=== PATIENT | female | born 1940 | race Caucasian/White ===

== ENCOUNTER → 2017-07-15 | Outpatient (CLI) | payer MEDICARE ==
[~2017-07-15] MED LIST: ACET650S21 PO; AMLO5TAB2 PO; ASCO10004 PO; ASPI-496 PO; CHOL5000 PO; DEXL60CA2 PO; DIPH50CA62 PO; FAMO-79 PO; IBUP200C8 PO; LEVO50TA PO; MULT-750 PO; NAPR220C2 PO; OMEG1CAP34 PO; SIMV10TA3 PO; TRAM50TA2 PO; VIT1TABL32 PO; [UNRECOGNIZED DRUG - OTHER] PO
[2017-07-15 10:10] LABS: MICROSCOPIC NOT IND
[2017-07-15 10:13] LABS: CULTURE INDICATED? NO
[2017-07-15 10:15] LABS: BASOPHILS # (AUTO) 0.05 x10^3/uL (0-0.1); BASOPHILS % (AUTO) 1 % (0-1); EOSINOPHILS # (AUTO) 0.11 x10^3/uL (0-0.4); EOSINOPHILS % (AUTO) 1 % (1-7); LYMPHOCYTES # (AUTO) 1.48 x10^3/uL (1-3.4); LYMPHOCYTES % (AUTO) 18 % (22-44); MD NO; MEAN CORPUSCULAR HEMOGLOBIN 33.8 pg (27.0-34.8); MEAN CORPUSCULAR HGB CONC 33.5 g/dL (32.4-35.8); MEAN CORPUSCULAR VOLUME 100.7 fL (80-100); MEAN PLATELET VOLUME 8.1 fL (7.4-10.4); MONOCYTES # (AUTO) 0.67 x10^3/uL (0.2-0.8); MONOCYTES % (AUTO) 8 % (2-9); NEUTROPHILS # (AUTO) 6.15 x10^3/uL (1.8-6.8); NEUTROPHILS % (AUTO) 73 % (42-75); PLATELET COUNT 244 x10^3/uL (130-400); RED CELL DISTRIBUTION WIDTH 14.4 % (9.6-15.2)
[2017-07-15 10:16] LABS: ANION GAP 7 mmol/L (5-15); CALCIUM 9.2 mg/dL (8.5-10.1); CHLORIDE 109 mmol/L (98-107); CREATININE 0.58 mg/dL (0.55-1.02)
== END ==
LOC: STAR 08:45
PROVIDERS: ATTEND Orthopaedic Surgery
DX: Z01.818 Encounter for other preprocedural examination (principal); M17.11 Unilateral primary osteoarthritis, right knee; K21.9 Gastro-esophageal reflux disease without esophagitis; M19.90 Unspecified osteoarthritis, unspecified site
CPT/HCPCS: 36415; 80048; 81003; 85025; 87081; 87147; 93005

== ENCOUNTER 2017-07-21 08:51 | Inpatient (IN) | payer MEDICARE ==
[~2017-07-21] VITALS: Ht 160 cm; Wt 68.8 kg
[2017-08-05] MEDS ORDERED: LACTATED RINGERS 1,000 ML IV SCH (06:52)
[2017-08-05] MEDS ORDERED: GABA300C10 PO (06:56)
[2017-08-05] MEDS ORDERED: LIDOCAINE 1%, 2ML SQ PRN (07:00)
[2017-08-05] MEDS ORDERED: MUPIROCIN OINT 2%, 22GM TP ONE (07:03)
[2017-08-05] MEDS ORDERED: ACETAMINOPHEN 500 MG TABLET ONE (08:02)
[2017-08-05] MEDS ORDERED: MIDAZOLAM 1 MG/ML, 2ML ONE (08:10)
[2017-08-05] MEDS ORDERED: KETAMINE 10 MG/ML, 20ML ONE (08:10)
[2017-08-05] MEDS ORDERED: FENTANYL PF 250 MCG/5ML ONE (08:11)
[2017-08-05] MEDS ORDERED: APREPITANT 40 MG CAPSULE PO ONE (08:30)
[2017-08-05] MEDS ORDERED: ACETAMINOPHEN 500 MG TABLET PO ONE (08:30)
[2017-08-05] MEDS ORDERED: CEFAZOLIN 1,000 MG ONE (09:23)
[2017-08-05] MEDS ORDERED: PROPOFOL 10 MG/ML, 20ML ONE (09:23)
[2017-08-05] MEDS ORDERED: DEXAMETHASONE 4 MG/ML, 1ML ONE (09:23)
[2017-08-05] MEDS ORDERED: ROCURONIUM 10 MG/ML,10ML ONE (09:23)
[2017-08-05] MEDS ORDERED: DIPHENHYDRAMINE 50 MG/ML, 1ML ONE (09:23)
[2017-08-05] MEDS ORDERED: PROPOFOL 10 MG/ML, 50ML ONE (09:23)
[2017-08-05] MEDS ORDERED: ONDANSETRON 2MG/ML, 2ML ONE (09:23)
[2017-08-05] MEDS ORDERED: OXYcodone 5 MG/5 ML ORAL.SOL UDC PO PRN (10:30)
[2017-08-05] MEDS ORDERED: PROMETHAZINE 25 MG/ML, 1ML IV PRN (10:30)
[2017-08-05] MEDS ORDERED: FENTANYL PF 100 MCG/2ML IV PRN (10:30)
[2017-08-05] MEDS ORDERED: ONDANSETRON 2MG/ML, 2ML IVPush PRN (10:30)
[2017-08-05] MEDS ORDERED: HYDROmorphone 1 MG/ML, 1ML IV PRN (10:30)
[2017-08-05] MEDS ORDERED: MAGNESIUM HYDROXIDE 8%, 30ML UDC PO PRN (11:00)
[2017-08-05] MEDS ORDERED: ONDANSETRON 2MG/ML, 2ML IV PRN (11:00)
[2017-08-05] MEDS ORDERED: ALUMINUM/MAG/SIMETHICONE 30 ML UDC PO PRN (11:00)
[2017-08-05] MEDS ORDERED: ZOLPIDEM 5MG TABLET PO PRN (11:00)
[2017-08-05] MEDS ORDERED: PROMETHAZINE 12.5 MG SUPP PR PRN (11:00)
[2017-08-05] MEDS ORDERED: BISACODYL 10 MG SUPP PR PRN (11:00)
[2017-08-05] MEDS ORDERED: ONDANSETRON 4 MG TABLET PO PRN (11:00)
[2017-08-05] MEDS ORDERED: DIPHENHYDRAMINE 50 MG CAPSULE PO PRN (11:00)
[2017-08-05] MEDS ORDERED: DIAZEPAM 5 MG TABLET PO PRN (11:00)
[2017-08-05] MEDS ORDERED: SENNA/DOCUSATE TABLET PO PRN (11:00)
[2017-08-05] MEDS ORDERED: PROMETHAZINE 25 MG/ML, 1ML IM PRN (11:00)
[2017-08-05] MEDS ORDERED: TRANEXAMIC ACID 1,000 MG in SODIUM CHLORIDE 0.9% 100 ML IVPB ONE (11:30)
[2017-08-05] MEDS ORDERED: FENTANYL PF 100 MCG/2ML ONE (11:44)
[2017-08-05] MEDS ORDERED: OXYcodone 5 MG/5 ML ORAL.SOL UDC ONE (11:45)
[2017-08-05 12:15] VITALS: BP 126/82
[2017-08-05] MEDS: D5%-0.45% NACL 1,000 ML IV SCH ×2 (12:59→19:30)
[2017-08-05] MEDS: ACETAMINOPHEN 650 MG/20.3 ML UDC PO SCH ×2 (14:31→20:39)
[2017-08-05] MEDS: CEFAZOLIN PMX 1GM/50ML 50 ML IVPB SCH ×2 (14:31→23:12)
[2017-08-05 14:47] VITALS: BP 117/73
[2017-08-05] MEDS: MUPIROCIN OINT 2%, 22GM TP SCH ×2 (16:05→20:42)
[2017-08-05] MEDS: ASPIRIN 81 MG TABLET EC PO SCH (18:03)
[2017-08-05 19:00] VITALS: BP 118/68
[2017-08-05] MEDS: DOCUSATE 100 MG CAPSULE PO SCH (20:39)
[2017-08-05] MEDS ORDERED: FAMOTIDINE 20 MG TABLET PO SCH ×2 (21:00)
[2017-08-05] MEDS ORDERED: SIMVASTATIN 10 MG TABLET PO SCH (21:00)
[2017-08-06 01:44] VITALS: BP 126/78
[2017-08-06] MEDS: ACETAMINOPHEN 650 MG/20.3 ML UDC PO SCH ×3 (02:19→13:49)
[2017-08-06] MEDS: D5%-0.45% NACL 1,000 ML IV SCH ×2 (03:22→11:27)
[2017-08-06] MEDS: ASPIRIN 81 MG TABLET EC PO SCH (05:35)
[2017-08-06] MEDS ORDERED: LEVOTHYROXINE 50 MCG TABLET PO SCH (06:00)
[2017-08-06] MEDS ORDERED: DEXAMETHASONE 4 MG/ML, 1ML IVPush SCH (06:00)
[2017-08-06 07:05] VITALS: BP 146/86
[2017-08-06] MEDS ORDERED: PANTOPROZOLE 40MG TABLET PO SCH (07:30)
[2017-08-06] MEDS: DOCUSATE 100 MG CAPSULE PO SCH (08:16)
[2017-08-06] MEDS: MUPIROCIN OINT 2%, 22GM TP SCH ×2 (08:17→16:00)
[2017-08-06] MEDS ORDERED: AMLODIPINE 5 MG TABLET PO SCH (09:00)
[2017-08-06] MEDS ORDERED: MULTIVITAMINS/MINERALS TABLET PO SCH (09:00)
[2017-08-06] MEDS ORDERED: KETOROLAC 30 MG/1 ML IV SCH (11:00)
[2017-08-06 13:16] VITALS: BP 125/72
[2017-08-06] MEDS ORDERED: MIDAZOLAM 1 MG/ML, 2ML ONE (14:24)
[2017-08-06 16:09] VITALS: BP 151/86
== END 2017-08-06 16:45 | disposition home or self-care (01) | DRG 470 ==
LOC: ORIP 08-05 06:20 → 4NOR 08-05 12:25
PROVIDERS: ADMIT Orthopaedic Surgery; ATTEND Orthopaedic Surgery
PROC: 0SRC0J9 Replacement of Right Knee Joint with Synthetic Substitute, Cemented, Open Approach (ICD-10-PCS; principal; 2017-08-05 09:15)
DX: M17.11 Unilateral primary osteoarthritis, right knee (principal); E03.9 Hypothyroidism, unspecified; E78.5 Hyperlipidemia, unspecified; I10 Essential (primary) hypertension; K21.9 Gastro-esophageal reflux disease without esophagitis
CPT/HCPCS: 36415; 85014; 85018; C1713; J0171; J0690; J1100; J1885; J2250; J2405; J2704; J2795; J3010; J3490; J8501; C1776; J1200; J7120